=== PATIENT | male | born 1985 | race African-American/Black ===

== ENCOUNTER 2016-07-14 14:40 | Emergency (ER) | payer SELFPAY ==
[~2016-07-14] VITALS: Ht 182.9 cm; Wt 93.0 kg
[2016-07-14 14:41] VITALS: BP 130/62; PULSE 87; RESP 16; TEMP 97.7; O2SAT 98
--- NOTE | 2016-07-14 14:58 | PD ---
Physical Exam Date Seen by Provider: Jul 14, 2016 Time Seen by Provider: 14:56 Narrative 31 YOBM C/O CYST ON BACK OF HEAD THAT BURST. VSS AWAITING BED PLACEMENT Data Data Last Documented VS Vital Signs Date Time Temp Pulse Resp B/P Pulse Ox O2 Delivery O2 Flow Rate FiO2 07/14/16 14:41 97.7 87 16 130/62 98 MDM Medical Record Reviewed: Yes Supervised Visit with EVY: Yes Memo Moulton Jul 14, 2016 14:58
[2016-07-14] MEDS ORDERED: BACT800T5 PO (15:14)
[2016-07-14] MEDS ORDERED: CEPH-460 PO (15:14)
[2016-07-14] MEDS ORDERED: IBUP800T23 PO (15:15)
--- NOTE | 2016-07-14 15:15 | PD ---
HPI Chief Complaint: Lump, Cyst, Hernia Time Seen by Provider: 15:13 Travel History International Travel<30 days: No Contact w/Intl Traveler<30days: No Traveled to known affect area: No History of Present Illness HPI 31-year-old male presents to the emergency Department with complaint of a lump to the back of his scalp that is been there for about 8 months or so. He had dreadlocks last summer and after he took his dreadlocks out he was getting small bumps that were forming and popping that were full of hair to the same area. The area has scarred over and started draining today. He denies fever, chills, nausea, vomiting. Has not taken any medications or tried any treatments to alleviate his symptoms. No known allergies. No other modifying factors or associated signs and symptoms. PFSH Social History Tobacco Use: No Allergies-Medications (Allergen,Severity, Reaction): Coded Allergies: No Known Allergies (Unverified , 07/14/16) Reported Meds & Prescriptions Reported Meds & Active Scripts Active Ibuprofen 800 Mg Tab 800 Mg PO Q6HR PRN Bactrim DS (Sulfamethoxazole-Trimethoprim) 800-160 Mg Tab 1 Tab PO BID 10 Days Keflex (Cephalexin) 500 Mg Cap 500 Mg PO Q6H 10 Days Review of Systems Except as stated in HPI: all other systems reviewed are Neg Physical Exam Narrative GENERAL: Well-nourished, well-developed patient, in no acute distress; afebrile , nontoxic-appearing SKIN: There is an indurated area to the posterior scalp which measures about 1 cm in diameter. It is fluctuant and draining purulent drainage; there is a tuft of hair coming from the opening of the abscess. There is area surrounding the abscess that is indurated but without fluctuance. HEAD: Atraumatic. Normocephalic. EYES: Pupils equal and round. No scleral icterus. No injection or drainage. ENT: Mucosa pink and moist. Airway patent. NECK: Trachea midline. CARDIOVASCULAR: Regular rate. RESPIRATORY: No accessory muscle use. GASTROINTESTINAL: Flat. MUSCULOSKELETAL: No obvious deformities. No clubbing. No cyanosis. No edema. NEUROLOGICAL: Awake and alert. Oriented 3. No obvious cranial nerve deficits. Motor grossly within normal limits. Normal speech. PSYCHIATRIC: Appropriate mood and affect; insight and judgment normal. Data Data Last Documented VS Vital Signs Date Time Temp Pulse Resp B/P Pulse Ox O2 Delivery O2 Flow Rate FiO2 07/14/16 14:41 97.7 87 16 130/62 98 MDM Medical Decision Making Medical Screen Exam Complete: Yes Emergency Medical Condition: Yes Medical Record Reviewed: Yes Differential Diagnosis Abscess, folliculitis, cellulitis Narrative Course 31-year-old male physical exam consistent with an abscess to his posterior scalp. It is draining purulent drainage. Wound culture pending. Patient is afebrile and nontoxic appearing. Afebrile, Keflex, Bactrim prescribed for home. Instructed patient to follow up with dermatology. Patient verbalizes understanding and agreement with treatment plan. Patient is medically cleared and stable for discharge. Discussed reasons to return to the emergency department. Instructed patient to follow up with primary care provider. Patient agrees with treatment plan. The patients vital signs are stable and the patient is stable for outpatient follow-up and treatment. Patient discharged home, stable and in no acute distress. Diagnosis Primary Impression: Abscess of scalp Referrals: Primary Care Physician Patient Instructions: Abscess (ED), Abscess Follow-up (ED), General Instructions Departure Forms: Tests/Procedures, Work Release Enter return to work date: Jul 15, 2016 Additional Instructions: Complete full course of antibiotics Warm compresses to the affected area Keep area clean and dry Ibuprofen or Tylenol as directed and as needed for pain and inflammation Follow-up with primary care provider Return to emergency department immediately with worsening of symptoms Med/Other Pt SpecificInfo: Prescription(s) given Scripts Ibuprofen 800 Mg [id number] Mg PO Q6HR PRN (PAIN) #30 TAB Ref 0 Prov:Catherine Ro 07/14/16 Sulfamethoxazole-Trimethoprim (Bactrim DS)800-160 Mg Tab1 Tab PO BID 10 Days Ref 0 Prov:Catherine Ro 07/14/16 Cephalexin (Keflex)500 Mg [id number] Mg PO Q6H 10 Days Ref 0 Prov:Catherine Ro 07/14/16 Disposition: 01 DISCHARGE HOME Condition: Stable Catherine Ro Jul 14, 2016 15:15
== END 2016-07-14 15:35 | disposition home or self-care (01) ==
LOC: NEPK 14:40
DX: L02.811 Cutaneous abscess of head [any part, except face] (principal)
CPT/HCPCS: 86403; 87070; 87186; 87205; 99282